=== PATIENT | male | born 1990 | race Caucasian/White ===

== ENCOUNTER 2016-11-06 09:59 | Emergency (ER) | payer OTHER ==
[2016-11-06 10:19] VITALS: BP 123/74; PULSE 60; TEMP 97.4; BMI 32.1
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
== END 2016-11-06 11:22 | disposition home or self-care (01) ==
LOC: JER 09:59
DX: M54.6 Pain in thoracic spine (principal); R10.84 Generalized abdominal pain; X50.0XXA Overexertion from strenuous movement or load, initial encounter; X00.8XXA Other exposure to uncontrolled fire in building or structure, initial encounter; Y93.89 Activity, other specified; Y92.89 Other specified places as the place of occurrence of the external cause; Y99.0 Civilian activity done for income or pay
CPT/HCPCS: 99281-25

== ENCOUNTER 2017-02-22 14:48 | Emergency (ER) | payer OTHER ==
[2017-02-22 14:59] VITALS: BP 123/66; PULSE 65; TEMP 98.7; BMI 23.7
[2017-02-22] MEDS ORDERED: IBUPROFEN 600 MG TABLET (FP) PO ONE ×2 (16:20→16:22)
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
== END 2017-02-22 16:54 | disposition home or self-care (01) ==
LOC: JERFT 14:48 → JER 14:48 → JERFT 16:54
DX: T67.5XXA Heat exhaustion, unspecified, initial encounter (principal); X58.XXXA Exposure to other specified factors, initial encounter; Y93.89 Activity, other specified; Y92.89 Other specified places as the place of occurrence of the external cause; Y99.0 Civilian activity done for income or pay
CPT/HCPCS: 99281-25

== ENCOUNTER 2022-09-24 12:00 | Emergency (ER) | payer BC, OTHER ==
[2022-09-24 12:18] VITALS: BP 112/79; PULSE 66; RESP 20; TEMP 98.4; BMI 25.7
[2022-09-24] MEDS ORDERED: DIPHTH,PERTUSS(ACELL),TET 0.5 ML DISP.SYRIN IM ONE ×2 (13:15→14:00)
[2022-09-24] MEDS ORDERED: ACETAMINOPHEN 500 MG TABLET (FP) PO ONE (13:16)
[2022-09-24] MEDS ORDERED: ACETAMINOPHEN 500 MG TABLET (FP) ONE (14:00)
== END 2022-09-24 14:57 | disposition home or self-care (01) ==
LOC: JERFT 12:12
PROC: 3E0234Z Introduction of Serum, Toxoid and Vaccine into Muscle, Percutaneous Approach (ICD-10-PCS; principal; 2022-09-24)
DX: S02.2XXA Fracture of nasal bones, initial encounter for closed fracture (principal); W01.0XXA Fall on same level from slipping, tripping and stumbling without subsequent striking against object, initial encounter; Y04.0XXA Assault by unarmed brawl or fight, initial encounter
CPT/HCPCS: 70450-TC; 70486-TC; 73130-TC-RT-FY; 90471; 90715; 99285-25

== ENCOUNTER 2022-10-05 04:07 | Day surgery (SDC) | payer BC ==
[2022-10-03 15:33] VITALS: BMI 26.4
[2022-10-05] MEDS ORDERED: MIDAZOLAM HCL 2 MG/2 ML SINGLE DOSE VIAL ONE (15:20)
[2022-10-05] MEDS ORDERED: PROPOFOL 20 ML ONE ×3 (15:20→15:55)
[2022-10-05] MEDS ORDERED: SUCCINYLCHOLINE CHLORIDE 200 MG/10 ML SYRINGE ONE (15:29)
[2022-10-05] MEDS ORDERED: BENZOIN/ALOE VERA/STORAX/TOLU 58 ML BOTTLE ONE (15:35)
[2022-10-05] MEDS ORDERED: PROPOFOL 40 ML ONE (15:37)
[2022-10-05] MEDS ORDERED: DEXAMETHASONE SOD PHOSPHATE 4 MG/1 ML VIAL ONE (15:42)
[2022-10-05] MEDS ORDERED: FENTANYL CITRATE/PF 50 MCG/ML VIAL ONE ×2 (15:45→17:06)
[2022-10-05] MEDS ORDERED: ONDANSETRON 4 MG/2 ML VIAL ONE (15:55)
[2022-10-05] MEDS ORDERED: BENZOIN/ALOE VERA/STORAX/TOLU 58 ML BOTTLE TP ONE (16:07)
[2022-10-05] MEDS ORDERED: ACETAMINOPHEN 325 MG TABLET (FP) PO PRN (16:34)
[2022-10-05] MEDS ORDERED: ONDANSETRON 4 MG/2 ML VIAL IVPUSH PRN (16:34)
[2022-10-05] MEDS ORDERED: oxyCODONE HCL 5 MG TABLET PO PRN (16:34)
[2022-10-05] MEDS ORDERED: LACTATED RINGERS SOLUTION 1,000 ML IV SCH (16:45)
[2022-10-05 17:06] VITALS: PULSE 58
[2022-10-05 17:49] VITALS: BP 125/81; RESP 18; TEMP 97.6
== END 2022-10-05 18:30 | disposition home or self-care (01) ==
LOC: JASU-SURG 04:07
PROVIDERS: ATTEND Otolaryngology
PROC: 0NSBXZZ Reposition Nasal Bone, External Approach (ICD-10-PCS; principal; 2022-10-05 15:00)
DX: S02.2XXA Fracture of nasal bones, initial encounter for closed fracture (principal); X58.XXXA Exposure to other specified factors, initial encounter; Y93.9 Activity, unspecified; Y92.9 Unspecified place or not applicable; Y99.9 Unspecified external cause status
CPT/HCPCS: 94760

== ENCOUNTER 2024-03-20 18:11 | Emergency (ER) | payer OTHER ==
[2024-03-20 18:24] VITALS: BP 121/77; PULSE 76; RESP 18; TEMP 98; BMI 24.4
[2024-03-20] MEDS ORDERED: KETOROLAC TROMETHAMINE 30 MG/1 ML VIAL ONE (19:37)
[2024-03-20] MEDS: SODIUM CHLORIDE 1,000 ML IV STA (19:40)
[2024-03-20] MEDS: KETOROLAC TROMETHAMINE 30 MG/1 ML VIAL IVPUSH ONE (19:40)
[2024-03-20 19:52] LABS: HEMATOCRIT 44.4 % (35.4-49); HEMOGLOBIN 15.1 GM/dL (11.7-16.9); MCH 31.2 pg (25.7-33.7); MCHC 33.9 g/dl (32.0-35.9); MEAN CELL VOLUME 92.1 fl (80-96); MEAN PLT VOLUME 7.3 fl (7.5-11.1); PLATELET COUNT 218 10^3/uL (134-434); RBC 4.83 M/mm3 (4.00-5.60); RDW 13.4 % (11.9-15.9); WHITE BLOOD COUNT 12.4 K/mm3 (4.0-10.0)
[2024-03-20 19:55] LABS: VENOUS O2 SATURATION 67.2 % (70-80); VENOUS PCO2 42.9 mmHg (38-52); VENOUS PH 7.372 (7.310-7.410)
[2024-03-20 20:04] LABS: POTASSIUM 3.8 mmol/L (3.5-5.1)
[2024-03-20 20:07] LABS: CALCIUM 9.1 mg/dL (8.5-10.1)
[2024-03-20 20:08] LABS: ALBUMIN 4.7 g/dl (3.4-5.0); BLOOD UREA NITROGEN 21.7 mg/dL (7-18)
[2024-03-20 20:11] LABS: CREATININE 1.3 mg/dL (0.55-1.3)
[2024-03-20 20:13] LABS: BILIRUBIN,TOTAL 1.2 mg/dL (0.2-1); TOT PROT 7.6 g/dl (6.4-8.2)
== END 2024-03-20 20:47 | disposition home or self-care (01) ==
LOC: JERFT 18:11
PROC: 3E0333Z Introduction of Anti-inflammatory into Peripheral Vein, Percutaneous Approach (ICD-10-PCS; principal; 2024-03-20)
PROC: 3E0337Z Introduction of Electrolytic and Water Balance Substance into Peripheral Vein, Percutaneous Approach (ICD-10-PCS; 2024-03-20)
DX: T59.811A Toxic effect of smoke, accidental (unintentional), initial encounter (principal); M25.551 Pain in right hip; X00.1XXA Exposure to smoke in uncontrolled fire in building or structure, initial encounter
CPT/HCPCS: 36415; 73502-TC-RT-FY; 80053; 82803; 85027; 99284-25